=== PATIENT | male | born 1950 | race Caucasian/White ===

== ENCOUNTER 2017-08-04 19:13 | Inpatient (IN) | payer SELFPAY ==
[~2017-08-04] VITALS: Ht 180.3 cm; Wt 86.2 kg
--- NOTE | 2017-08-04 19:46 | NUR ---
IV LINE STARTED BLOOD DRAWN AND SENT TO LAB.
[2017-08-04 19:50] LABS: BASOPHILS # (AUTO) 0.1 /CMM (0.0-0.2); BASOPHILS % (AUTO) 0.5 % (0.0-2.0); EOSINOPHILS # (AUTO) 0.2 /CMM (0.0-0.7); EOSINOPHILS % (AUTO) 1.1 % (0.0-6.0); HEMATOCRIT 49 % (39-51); HEMOGLOBIN 16.9 g/dL (13.5-17.5); LYMPHOCYTES # (AUTO) 2.8 /CMM (0.8-4.8); MEAN CORPUSCULAR HEMOGLOBIN 32 PG (26.0-33.0); MEAN CORPUSCULAR HGB CONC 34 g/dl (31.0-36.0); MEAN CORPUSCULAR VOLUME 92 fL (80-96); MONOCYTES # (AUTO) 0.6 /CMM (0.1-1.30); MONOCYTES % (AUTO) 3.8 % (2.0-12.0); NEUTROPHILS # (AUTO) 12.9 /CMM (1.8-8.9); NEUTROPHILS % (AUTO) 77.6 % (43.0-81.0); PLATELET COUNT (AUTO) 136 /CMM (150-450); RDW COEFFICIENT OF VARIATION 12.6 (11.5-15.0); RED BLOOD CELL COUNT(AUTO) 5.32 MIL/uL (4.5-6.0); WHITE BLOOD COUNT (AUTO) 16.6 K/uL (4.3-11.0)
[2017-08-04 20:04] LABS: CALCIUM, SERUM 8.8 mg/dL (8.5-10.1); CARBON DIOXIDE 28 mmol/L (21-32); CHLORIDE 106 mmol/L (98-107); CREATININE 1.4 mg/dL (0.6-1.3); GLUCOSE 167 mg/dL (74-106); POTASSIUM 4.5 mmol/L (3.5-5.1); SODIUM SERUM 141 mmol/L (136-145); UREA NITROGEN, BLOOD 16 mg/dL (7-18)
[2017-08-04 20:08] LABS: INR 1.02 (0.85-1.15)
[2017-08-04 20:09] LABS: ALANINE AMINOTRANSFERASE 23 U/L (12-78); ALBUMIN 3.4 g/dL (3.4-5.0); ALKALINE PHOSPHATASE 68 U/L (46-116); ASPARTATE AMINOTRANSFERASE 18 U/L (15-37); BILIRUBIN,DIRECT 0.2 mg/dL (0.0-0.2); BILIRUBIN,TOTAL 0.6 mg/dL (0.2-1.0); TOTAL PROTEIN, SERUM 6.4 g/dL (6.4-8.2)
[2017-08-04 20:12] LABS: TROPONIN I < 0.017 ng/mL (0.00-0.056)
--- NOTE | 2017-08-04 20:19 | NUR ---
PT TO RADIOLOGY FOR HEAD CT SCAN VIA [facility].
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
[2017-08-04] MEDS ORDERED: ONDANSETRON 4 MG TAB.RAPDIS ONE (20:33)
--- NOTE | 2017-08-04 20:52 | NUR ---
PAGED EPIC FOR PANEL
[2017-08-04] MEDS ORDERED: ONDANSETRON 4 MG TAB.RAPDIS SL ONE (21:00)
[2017-08-04] MEDS ORDERED: IV NS 0.9% 1,000 ML IV PRN (21:02)
--- NOTE | 2017-08-04 21:14 | NUR ---
REPORT GIVEN TO CYNTHIA DENNISON. PT AWAITING TRANSFER TO FLOOR.
--- NOTE | 2017-08-04 21:24 | NUR ---
DR GARCIA MADE AWRE OF LOW B/P. VERBAL ORDER FOR 1L NS BOLUS. CARRIED OUT. INFUSING TO FLOOR. ENDORSED TO RECIEVING NURSE.
[2017-08-04] MEDS ORDERED: MAGNESIUM HYDROXIDE 30 ML UDC PO PRN (21:30)
[2017-08-04] MEDS ORDERED: HYDROCODONE/APAP 5/325MG 1 EACH TABLET PO PRN (21:30)
[2017-08-04] MEDS ORDERED: ASPIRIN 81 MG TAB.CHEW PO ONE (21:30)
[2017-08-04] MEDS ORDERED: MAG HYDROX/AL HYDROX/SIMETH 30 ML UDC PO PRN (21:30)
[2017-08-04] MEDS ORDERED: ONDANSETRON HCL/PF 4 MG/2 ML VIAL IVP PRN (21:30)
[2017-08-04] MEDS ORDERED: ZOLPIDEM TARTRATE 5 MG TABLET PO PRN (21:30)
[2017-08-04] MEDS ORDERED: ACETAMINOPHEN 325 MG TABLET PO PRN (21:30)
[2017-08-04] MEDS ORDERED: Z GUARD REMEDY 2 OZ OINT TP PRN (21:30)
[2017-08-04 22:00] VITALS: BP 101/54
[2017-08-04] MEDS ORDERED: ASPIRIN 325 MG TABLET PO ONE (22:00)
[2017-08-04] MEDS: ENOXAPARIN SODIUM 40 MG/0.4 ML DISP.SYRIN SQ SCH (22:51)
[2017-08-05] VITALS (16 sets, daily range): BP systolic 87–117; BP diastolic 51–71
[2017-08-05 06:10] LABS: BASOPHILS % (AUTO) 0.4 % (0.0-2.0); CALCIUM, SERUM 7.8 mg/dL (8.5-10.1); CREATININE 1.1 mg/dL (0.6-1.3); EOSINOPHILS # (AUTO) 0.2 /CMM (0.0-0.7); EOSINOPHILS % (AUTO) 1.3 % (0.0-6.0); HEMATOCRIT 39 % (39-51); HEMOGLOBIN 13.4 g/dL (13.5-17.5); LYMPHOCYTES # (AUTO) 3.3 /CMM (0.8-4.8); LYMPHOCYTES % (AUTO) 26.7 % (20.0-44.0); MAGNESIUM 1.9 mg/dL (1.8-2.4); MEAN CORPUSCULAR HEMOGLOBIN 32 PG (26.0-33.0); MEAN CORPUSCULAR HGB CONC 34 g/dl (31.0-36.0); MEAN CORPUSCULAR VOLUME 94 fL (80-96); MONOCYTES # (AUTO) 0.6 /CMM (0.1-1.30); MONOCYTES % (AUTO) 5.1 % (2.0-12.0); NEUTROPHILS # (AUTO) 8.2 /CMM (1.8-8.9); NEUTROPHILS % (AUTO) 66.5 % (43.0-81.0); PHOSPHORUS 3.7 mg/dL (2.5-4.9); PLATELET COUNT (AUTO) 118 /CMM (150-450); POTASSIUM 4.3 mmol/L (3.5-5.1); RDW COEFFICIENT OF VARIATION 13.3 (11.5-15.0); RED BLOOD CELL COUNT(AUTO) 4.19 MIL/uL (4.5-6.0); WHITE BLOOD COUNT (AUTO) 12.3 K/uL (4.3-11.0)
[2017-08-05] MEDS ORDERED: IV NS 0.9% 1,000 ML IV ONE (07:49)
--- NOTE | 2017-08-05 08:16 | NUR ---
RN OPENING NOTES PT AWAKE AND RESTING IN BED. NO COMPLAINTS OF PAIN, SOB OR DISTRESS OVERNIGHT. PT IS TELE MONITORED AT NORMAL SINUS RHYTHM TRISTIAN. PT HAS A RIGHT AC IV #18 RUNNING NS @75ML/HR. SAFETY PRECAUTIONS IN PLACE. BED IN LOW, LOCKED POSITION, X2 SIDE RAILS UP, CALL LIGHT WITHIN REACH. WILL ENDORSE TO DAY SHIFT NURSE FOR CONTINUITY OF CARE.
[2017-08-05] MEDS: PANTOPRAZOLE 40 MG TABLET.DR PO SCH (09:17)
[2017-08-05] MEDS ORDERED: IV NS 0.9% 1,000 ML BAG IV ONE (16:30)
--- NOTE | 2017-08-05 18:00 | NUR ---
ortho vs x2.iv fluids given,bp still continues to run low.
--- NOTE | 2017-08-05 19:19 | NUR ---
rn initial notes: received report from corey gibson, pt in bed, awake, a/o x3 on ra respiration even and unlabored, denies any pain or discomfort at this time. pt has right ac iv access patent and flushing well, infusing with ns at 150ml/hr, as pt blood pressure is low during the day, hospitalist aware. urinal within reach. safety precautions for fall initiated call light in reach, will cotnineu to monitor
--- NOTE | 2017-08-05 19:20 | NUR ---
call from [facility]: received call from PRODUCT PICKER marisa, stated upon completion of pt's ivf, check patient's orthostatics, input in the computer, and if bp stable , hospitalist will dc the pt tonight.
--- NOTE | 2017-08-05 20:30 | NUR ---
ORTHOSTATIC BP: ORTHOSTATIC BP TAKEN AND RESULTS FOLLOWS: HR SUPINE: 104/66 HR 60 RR 20 T 98.2 SPO2 96% ON RA SITTIN/58 HR 58 RR 18 T 98.2 SPO2 96% ON RA STANDIN/61 HR 71 RR 20 T 98.2 SPO2 96% ON RA PT DENIES ANY PAIN OR DISCOMFORT, DENIES ANY DIZZINESS OR LIGHT HEADEDNESS DURING BP TAKING. INFORM PT THAT HE MIGHT POSSIBLY BE GOING HOME IF HIS BP IS STABLE, PER PT HE'S NOT COMFORTABLE GOING HOME TONIGHT AND WOULD RATHER STAY TONIGHT AND GO HOME IN AM. HER STATED HE DOESN'T FEEL LIKE HIS BP IS GOOD, SO HE WANTS TO STAY TONIGHT. WILL CONTINUE MONITORING PT.
[2017-08-05] MEDS: ENOXAPARIN SODIUM 40 MG/0.4 ML DISP.SYRIN SQ SCH (21:55)
[2017-08-06] VITALS (7 sets, daily range): BP systolic 92–113; BP diastolic 52–74
--- NOTE | 2017-08-06 06:39 | NUR ---
RN CLOSING NOTES: PT IN BED, AWAKE, REMAINS ON RA, DENIES ANY PAIN OR DISCOMFORT AT THIS TIME, IV ACCESS REMAINS PATENT AND FLUSHING WELL, ON HL. POSSIBLE DC TODAY IF VS WNL. EXIT CARE COMPLETED. SAFETY PRECAUTIONS FOR FALL REMAINS ENGAGE, CALL LIGHT IN REACH, WILL ENDORSE TO DAY RN FOR CARLEEN.
--- NOTE | 2017-08-06 07:45 | NUR ---
RN NOTES. RECEIVED PATIENT IN BED , SLEEPING BUT EASILY [place], RESPIRATION EVEN AND UNLABORED, NO COMPLAINTS OF PAIN OR DISCOMFORT AT THIS TIME, IV RIGHT AC 18 GAUGE HEPLOCK INTACT AND PATENT , NO REDNESS OR INFILTRATION NOTED, SAFETY MEASURES IN PLACE , CALL LIGHT KEPT WITHIN REACH. KEPT CLEAN, DRY AND COMFORTABLE, WILL CONTINUE TO MONITOR.
[2017-08-06 07:52] LABS: BASOPHILS # (AUTO) 0.1 /CMM (0.0-0.2); BASOPHILS % (AUTO) 0.8 % (0.0-2.0); EOSINOPHILS # (AUTO) 0.4 /CMM (0.0-0.7); EOSINOPHILS % (AUTO) 4.5 % (0.0-6.0); HEMATOCRIT 40 % (39-51); LYMPHOCYTES # (AUTO) 3.6 /CMM (0.8-4.8); LYMPHOCYTES % (AUTO) 41.4 % (20.0-44.0); MEAN CORPUSCULAR HEMOGLOBIN 33 PG (26.0-33.0); MEAN CORPUSCULAR HGB CONC 35 g/dl (31.0-36.0); MEAN CORPUSCULAR VOLUME 94 fL (80-96); MONOCYTES # (AUTO) 0.5 /CMM (0.1-1.30); MONOCYTES % (AUTO) 5.7 % (2.0-12.0); NEUTROPHILS # (AUTO) 4.1 /CMM (1.8-8.9); NEUTROPHILS % (AUTO) 47.6 % (43.0-81.0); PLATELET COUNT (AUTO) 114 /CMM (150-450); RDW COEFFICIENT OF VARIATION 13.6 (11.5-15.0); WHITE BLOOD COUNT (AUTO) 8.7 K/uL (4.3-11.0)
[2017-08-06 08:08] LABS: CALCIUM, SERUM 7.9 mg/dL (8.5-10.1); POTASSIUM 4.3 mmol/L (3.5-5.1)
--- NOTE | 2017-08-06 08:19 | NUR ---
JESI NOTES/ ORTHOSTATIC BP LYING 113/64 HR 54 SITTING 105/74 59 STANDING 98/66 61 Addendum: 08/06/17 at 0820 by VERO LEACH RN Amended: Links added.
[2017-08-06] MEDS: PANTOPRAZOLE 40 MG TABLET.DR PO SCH (09:12)
[2017-08-06] MEDS ORDERED: IV NS 0.9% 1,000 ML IV PRN (09:30)
--- NOTE | 2017-08-06 16:00 | NUR ---
RN NOTES PATIENT WITH DISCHARGE ORDERS, MADE AWARE, WILL ASSIST WITH DISCHARGE PROCESS
--- NOTE | 2017-08-06 18:20 | NUR ---
RN NOTES. PATIENT AWAKE ALERT VERBALLY RESPONSIVE, ABLE TO MAKE NEEDS KNOWN. RESPIRATION EVEN AND UNLABORED, NO COMPLAINTS OF PAIN OR DISCOMFORT AT THIS TIME,IN NO ACUTE DISTRESS. IV RIGHT AC AND ID BAND REMOVED WITH NO ASE NOTED. PATIENT WITH DISCHARGE ORDERS, ALL DISCHARGE INSTRUCTIONS REVIEWED WITH PATIENT WITH VERBAL UNDERSTANDING NOTED. ALL BELONGINGS ACCOUNTED FOR.ASSISTED TO LOBBY, DISCHARGED IN STABLE CONDITION
== END 2017-08-06 18:20 | disposition home or self-care (01) | DRG 684 ==
LOC: ER 19:21 → TELE 21:05 → MED 08-05 10:47
PROVIDERS: ADMIT Internal Medicine; ATTEND Internal Medicine
DX: N17.9 Acute kidney failure, unspecified (principal); S09.90XA Unspecified injury of head, initial encounter; D72.829 Elevated white blood cell count, unspecified; E86.0 Dehydration; E78.5 Hyperlipidemia, unspecified; R07.9 Chest pain, unspecified; R00.1 Bradycardia, unspecified; R10.13 Epigastric pain; R55 Syncope and collapse; M53.82 Other specified dorsopathies, cervical region; X58.XXXA Exposure to other specified factors, initial encounter; Y93.9 Activity, unspecified; Y92.009 Unspecified place in unspecified non-institutional (private) residence as the place of occurrence of the external cause
CPT/HCPCS: 36415; 70450-TC; 71045-TC; 80048-TC; 80076-TC; 83735-TC; 84100-TC; 84484-TC; 85025-TC; 85730-TC; 87081-TC; 93307-TC; 93880-TC; A4606; J1650; J7030; Q0162; Z7610

== ENCOUNTER → 2018-12-19 | Emergency (ER) | payer MEDICAID, OTHER ==
[~2018-12-19] VITALS: Ht 180.3 cm; Wt 87.7 kg
[2018-12-20 00:03] VITALS: BP 110/66
--- NOTE | 2018-12-20 00:14 | NUR ---
PT PLACED IN BED
== END | disposition home or self-care (01) ==
LOC: ER 23:59
DX: S50.862A Insect bite (nonvenomous) of left forearm, initial encounter (principal); S80.261A Insect bite (nonvenomous), right knee, initial encounter; Z60.2 Problems related to living alone; W57.XXXA Bitten or stung by nonvenomous insect and other nonvenomous arthropods, initial encounter; Y93.89 Activity, other specified; Y92.89 Other specified places as the place of occurrence of the external cause; Y99.8 Other external cause status

== ENCOUNTER 2019-05-22 12:10 | Inpatient (IN) | payer OTHER ==
[~2019-05-22] VITALS: Ht 180.3 cm; Wt 86.2 kg
--- NOTE | 2019-05-22 12:20 | NUR ---
LEFT SIDED CP X1 WEEK. PATIENT A/OX4, BREATHING EVEN AND UNLABORED, NO SOB NOTED. ATTACHED TOT HE CATIA DESIGNER.
[2019-05-22 12:38] LABS: BASOPHILS # (AUTO) 0.3 /CMM (0.0-0.2); BASOPHILS % (AUTO) 3.5 % (0.0-2.0); EOSINOPHILS % (AUTO) 2.2 % (0.0-6.0); HEMATOCRIT 48 % (39-51); HEMOGLOBIN 16.3 g/dL (13.5-17.5); LYMPHOCYTES # (AUTO) 2.4 /CMM (0.8-4.8); LYMPHOCYTES % (AUTO) 26.1 % (20.0-44.0); MEAN CORPUSCULAR HGB CONC 34 g/dl (31.0-36.0); MEAN CORPUSCULAR VOLUME 94 fL (80-96); MONOCYTES # (AUTO) 0.7 /CMM (0.1-1.30); NEUTROPHILS # (AUTO) 5.5 /CMM (1.8-8.9); NEUTROPHILS % (AUTO) 60.2 % (43.0-81.0); PLATELET COUNT (AUTO) 214 /CMM (150-450); RED BLOOD CELL COUNT(AUTO) 5.14 MIL/uL (4.5-6.0); WHITE BLOOD COUNT (AUTO) 9.2 K/uL (4.3-11.0)
[2019-05-22 13:07] LABS: CALCIUM, SERUM 8.9 mg/dL (8.5-10.1); CARBON DIOXIDE 26 mmol/L (21-32); CHLORIDE 105 mmol/L (98-107); CREATININE 1.2 mg/dL (0.6-1.3); GLUCOSE 122 mg/dL (74-106); POTASSIUM 3.8 mmol/L (3.5-5.1); SODIUM SERUM 141 mmol/L (136-145); UREA NITROGEN, BLOOD 16 mg/dL (7-18)
--- NOTE | 2019-05-22 13:20 | NUR ---
SUBMITTED MOVE SHEET TO ADMITTING AND CALLED FOR TELE BED
[2019-05-22 13:23] LABS: ALANINE AMINOTRANSFERASE 56 U/L (12-78); ALBUMIN 3.7 g/dL (3.4-5.0); ALKALINE PHOSPHATASE 88 U/L (46-116); ASPARTATE AMINOTRANSFERASE 23 U/L (15-37); B-TYPE NATRIURETIC PEPTIDE 37 PG/ML (0-125); BILIRUBIN,DIRECT 0.1 mg/dL (0.0-0.2); BILIRUBIN,TOTAL 0.4 mg/dL (0.2-1.0); TOTAL PROTEIN, SERUM 7.8 g/dL (6.4-8.2)
[2019-05-22] MEDS ORDERED: MORPHINE SULFATE INJ 2 MG/ML DISP.SYRIN IV PRN (14:30)
[2019-05-22] MEDS ORDERED: ACETAMINOPHEN 325 MG TABLET PO PRN (14:30)
[2019-05-22] MEDS ORDERED: MAGNESIUM HYDROXIDE 30 ML UDC PO PRN (14:30)
[2019-05-22] MEDS ORDERED: HYDROCODONE/APAP 5/325MG 1 EACH TABLET PO PRN (14:30)
[2019-05-22] MEDS ORDERED: ONDANSETRON HCL/PF 4 MG/2 ML VIAL IVP PRN (14:30)
[2019-05-22] MEDS ORDERED: MAG HYDROX/AL HYDROX/SIMETH 30 ML UDC PO PRN (14:30)
[2019-05-22] MEDS ORDERED: Z GUARD REMEDY 2 OZ OINT TP PRN (14:30)
[2019-05-22] MEDS ORDERED: ZOLPIDEM TARTRATE 5 MG TABLET PO PRN (14:30)
--- NOTE | 2019-05-22 14:44 | NUR ---
REPORT GIVEN TO RAFIQ DNENISON.
--- NOTE | 2019-05-22 15:10 | NUR ---
PATIENT TRANSFERRED TO ROOM 323-2 VIA ACLS PROTOCOL. IN STABLE CONDITION. NO DISTRESS NOTED.
[2019-05-22] MEDS: ASPIRIN 325 MG TABLET PO SCH (15:26)
[2019-05-22 16:00] VITALS: BP 114/63
[2019-05-22] MEDS: IBUPROFEN 400 MG TABLET PO SCH ×2 (16:37→21:46)
[2019-05-22] MEDS: NITROGLYCERIN 30 GM TUBE TP SCH ×2 (18:08→23:24)
[2019-05-22] MEDS: IV NS 0.9% 1,000 ML IV SCH (18:39)
--- NOTE | 2019-05-22 18:57 | NUR ---
rn closing notes patient remains on room air, no sob noted, a/o x4. cardiac diet. R ac 19 with 100 ml per hour. Nitro ointment placed at 1800, to be replaced with the next one. bed at the lowest setting, call light within reach, side rails up x2. will give report to noc rn for candido bedside.
[2019-05-22 20:00] VITALS: BP 112/76
--- NOTE | 2019-05-22 23:37 | NUR ---
ambien prn ambien 5mg administered as ordered per request by patient to help with sleeping.
[2019-05-23] VITALS: BP 108/65
[2019-05-23 04:17] VITALS: BP 116/65
[2019-05-23] MEDS: IBUPROFEN 400 MG TABLET PO SCH ×2 (05:39→09:52)
[2019-05-23] MEDS: NITROGLYCERIN 30 GM TUBE TP SCH ×2 (05:40→12:19)
[2019-05-23] MEDS: IV NS 0.9% 1,000 ML IV SCH (05:43)
[2019-05-23 07:10] LABS: CALCIUM, SERUM 8.4 mg/dL (8.5-10.1); MAGNESIUM 1.9 mg/dL (1.8-2.4); PHOSPHORUS 3.1 mg/dL (2.5-4.9); POTASSIUM 4.3 mmol/L (3.5-5.1)
[2019-05-23 07:23] LABS: BASOPHILS # (AUTO) 0.1 /CMM (0.0-0.2); BASOPHILS % (AUTO) 0.8 % (0.0-2.0); EOSINOPHILS % (AUTO) 3.9 % (0.0-6.0); HEMATOCRIT 42 % (39-51); HEMOGLOBIN 14.3 g/dL (13.5-17.5); LYMPHOCYTES # (AUTO) 3.1 /CMM (0.8-4.8); LYMPHOCYTES % (AUTO) 37.8 % (20.0-44.0); MEAN CORPUSCULAR HGB CONC 34 g/dl (31.0-36.0); MEAN CORPUSCULAR VOLUME 93 fL (80-96); MONOCYTES # (AUTO) 0.8 /CMM (0.1-1.30); MONOCYTES % (AUTO) 10.1 % (2.0-12.0); NEUTROPHILS # (AUTO) 3.9 /CMM (1.8-8.9); NEUTROPHILS % (AUTO) 47.4 % (43.0-81.0); RED BLOOD CELL COUNT(AUTO) 4.51 MIL/uL (4.5-6.0); WHITE BLOOD COUNT (AUTO) 8.2 K/uL (4.3-11.0)
[2019-05-23] MEDS ORDERED: IV NS 0.9% 1,000 ML IV PRN (07:31)
[2019-05-23 08:00] VITALS: BP 104/63
--- NOTE | 2019-05-23 08:01 | NUR ---
PROFESSOR OF THEATER OPENING NOTES RECEIVED REPORT FROM KVNG DENNISON. PT A/O X4, RESPONSIVE TO ALL STIMULI. RESPIRATION NOT IN ACUTE RESPIRATORY DISTRESS. DENIES PAIN / CHEST PAIN. ABD SOFT AND NON DISTENDED WITH ACTIVE BOWEL SOUNDS WITH BRP. SKIN WARM TO TOUCH, INTACT AN DRY, NO EDEMA NOTED ON BLE. RIGHT AC #18 PATENT IN FLUSHING WITH NO S/SX ON INFILTRATION RUNNING NS 100 ML/HR. TELE MONITOR SHOWS SINUS BRADYCARDIA 55 WITH T WAVE. ALL CONCERNS ATTENDED AT THIS TIME. CALL LIGHT WITHIN REACH. WILL CONTINUE TO EVALUATE CARE
[2019-05-23] MEDS: ASPIRIN 325 MG TABLET PO SCH (08:17)
--- NOTE | 2019-05-23 08:22 | NUR ---
CURBING STONECUTTER NOTES PT SEEN BY DR. ARIAS. CONTINUE NSAIDS FOR PAIN, EXPLAINED TO PATIENT ABOUT PLEURITIC CHEST PAIN. WAITING FOR CARDIO CONSULT, DR. CHNADRA PLAN OF CARE. PT VERBALIZED UNDERSTANDING.
[2019-05-23 09:33] LABS: PLATELET COUNT (AUTO) 184 /CMM (150-450)
[2019-05-23 12:19] VITALS: BP 109/73
[2019-05-23] MEDS ORDERED: PNEUMOCOCCAL 23-VAL P-SAC VAC 0.5 ML VIAL SQ ONE (13:00)
[2019-05-23] MEDS ORDERED: INFLUENZA VACCINE 2019-20 0.5 ML DISP.SYRIN IM ONE (13:00)
--- NOTE | 2019-05-23 13:29 | NUR ---
M/S CERTIFIED ANESTHESIOLOGIST ASSISTANT NOTES PT DISCHARGED WITH MEDICALLY STABLE CONDITION. PT REMAINED A/O X 4, RESPONSIVE TO ALL STIMULI. RESPIRATION EVEN AND UNLABORED WITH NO ACUTE RESPIRATORY DISTRESS, ABLE TO AMBULATE WITH NO C/O SOB/EXERTION ABDOMEN SOFT AND NON DISTENDED WITH ACTIVE BOWEL SOUNDS, BM TODAY. DENIES PAIN AND DISCOMFORT. SKIN REMAINED INTACT AND DRY. RIGHT AC IV TAKEN OFF. ID BAND REMOVED. EXIT CARE GIVEN WITH INSTRUCTIONS PROVIDED, PT VERBALLY UNDERSTOOD THE FF UP WITH PCP AND MD RECOMMENDATIONS. PT STATED NECKLACE TAKEN BY ALREADY D/T INVENTORY LISTED. FLU VACCINE AND PNEUMO VACCINE GIVEN TO DELTOID WITH NO ADVERSE REACTION NOTED. RE-CHECKED BP WITH 123/85 MM HF, HR 72, NO C/O LIGHTHEADEDNESS/FATIGUE/CHEST PAIN. ALL CONCERNS AND CARE ATTENDED. PT LEFT ACCOMPANIED BY DYAN CARRERO, PT DRIVEN A PRIVATE CAR
== END 2019-05-23 13:35 | disposition home or self-care (01) | DRG 113 ==
LOC: ER 12:10 → TELE 14:09 → MED 05-23 13:31
PROVIDERS: ADMIT Internal Medicine; ATTEND Internal Medicine
DX: J06.9 Acute upper respiratory infection, unspecified (principal); E78.5 Hyperlipidemia, unspecified; E86.0 Dehydration; I70.0 Atherosclerosis of aorta; R55 Syncope and collapse; R00.1 Bradycardia, unspecified; H02.60 Xanthelasma of unspecified eye, unspecified eyelid
CPT/HCPCS: 36415; 71045-TC; 80048-TC; 80061-TC; 80076-TC; 83735-TC; 83880; 84100-TC; 84484-TC; 85025-TC; 87081-TC; 90732; 93307-TC; G0378; J7030; Q2036

== ENCOUNTER 2019-07-12 11:02 | Emergency (ER) | payer OTHER ==
[~2019-07-12] VITALS: Ht 180.3 cm; Wt 93.9 kg
--- NOTE | 2019-07-12 11:16 | NUR ---
bibwife, c/o right ear pain and loss of hearing x 2 weeks, 07/26 ps. Patient a/ox4, breathing even and unlabored, no sob noted.
--- NOTE | 2019-07-12 11:18 | NUR ---
DEGRASSE GAS CONTROLLER AT BEDSIDE FOR EVAL.
[2019-07-12] MEDS ORDERED: DOCUSATE SODIUM LIQ 100 MG/10 ML UDC ONE ×2 (11:19→11:47)
[2019-07-12] MEDS ORDERED: DOCUSATE SODIUM LIQ 100 MG/10 ML UDC NG ONE (11:30)
--- NOTE | 2019-07-12 12:22 | NUR ---
Ear irrigated, Patient discharged to home in stable condition. Written and verbal after care instructions given. Patient verbalizes understanding of instruction.
[2019-07-12 12:23] VITALS: BP 118/64
== END 2019-07-12 12:23 | disposition home or self-care (01) ==
LOC: ER 11:08
DX: H61.21 Impacted cerumen, right ear (principal); Z60.2 Problems related to living alone

== ENCOUNTER 2021-06-07 12:21 | Inpatient (IN) | payer MEDICARE, OTHER ==
[~2021-06-07] VITALS: Ht 180.3 cm; Wt 93.0 kg
--- NOTE | 2021-06-07 12:21 | NUR ---
PT BIB SELF C/O L SIDED CHEST/CHEST WALL PAIN SINCE YESTERDAY. WAS LIFTING WEIGHTS 3 DAYS AGO. PT IS AAOX4, NOT IN RESPIRATORY DISTRESS, HOOKED TO MAINSPRING STRIP GAUGER, KEPT RESTED AND COMFORTABLE. WILL CONTINUE TO MONITOR.
--- NOTE | 2021-06-07 12:28 | NUR ---
AT BEDSIDE FOR EVAL.
--- NOTE | 2021-06-07 12:40 | NUR ---
DRIVER ENGINEER AT BEDSIDE FOR XRAY.
--- NOTE | 2021-06-07 12:59 | NUR ---
ER PHLEB AT BEDSIDE FOR BLOOD DRAW.
--- NOTE | 2021-06-07 13:00 | NUR ---
MOVE SHEET SUBMITTED AND CALLED FOR TELE BED.
[2021-06-07 14:01] LABS: BASOPHILS # (AUTO) 0.1 K/uL (0.0-0.2); BASOPHILS % (AUTO) 0.5 % (0.0-2.0); EOSINOPHILS % (AUTO) 1.1 % (0.0-6.0); HEMATOCRIT 43 % (39-51); HEMOGLOBIN 14.5 g/dL (13.5-17.5); LYMPHOCYTES # (AUTO) 2.2 K/uL (0.8-4.8); LYMPHOCYTES % (AUTO) 16.4 % (20.0-44.0); MEAN CORPUSCULAR HGB CONC 34 g/dl (31.0-36.0); MEAN CORPUSCULAR VOLUME 95 fL (80-96); MONOCYTES # (AUTO) 0.6 K/uL (0.1-1.30); MONOCYTES % (AUTO) 4.4 % (2.0-12.0); NEUTROPHILS # (AUTO) 10.5 K/uL (1.8-8.9); NEUTROPHILS % (AUTO) 77.6 % (43.0-81.0); PLATELET COUNT (AUTO) 175 K/uL (150-450); RED BLOOD CELL COUNT(AUTO) 4.54 MIL/uL (4.5-6.0); WHITE BLOOD COUNT (AUTO) 13.5 K/uL (4.3-11.0)
[2021-06-07] MEDS ORDERED: ACET-2605 PO (14:16)
[2021-06-07 14:27] LABS: CALCIUM, SERUM 9.1 mg/dL (8.5-10.1); CARBON DIOXIDE 27 mmol/L (21-32); CHLORIDE 102 mmol/L (98-107); CREATININE 1.4 mg/dL (0.6-1.3); GLUCOSE 93 mg/dL (74-106); POTASSIUM 4.2 mmol/L (3.5-5.1); SODIUM SERUM 138 mmol/L (136-145); UREA NITROGEN, BLOOD 16 mg/dL (7-18)
--- NOTE | 2021-06-07 16:10 | NUR ---
ER PHLEB AT BEDSIDE FOR 2ND TROPONIN
--- NOTE | 2021-06-07 18:00 | NUR ---
COVID SPECIMEN OBTAINED AND SENT TO LAB.
--- NOTE | 2021-06-07 18:03 | NUR ---
[facility] CALLED COMPUTER EQUIPMENT INSTALLER PAGED.
[2021-06-07] MEDS ORDERED: Z GUARD REMEDY 4 OZ OINT TP PRN (19:00)
[2021-06-07] MEDS ORDERED: ACETAMINOPHEN 325 MG TABLET PO PRN (19:00)
[2021-06-07] MEDS ORDERED: ASPIRIN 325 MG TABLET PO ONE (19:00)
[2021-06-07] MEDS ORDERED: ZOLPIDEM TARTRATE 5 MG TABLET PO PRN (19:00)
[2021-06-07] MEDS ORDERED: MAG HYDROX/AL HYDROX/SIMETH 30 ML UDC PO PRN (19:00)
[2021-06-07] MEDS ORDERED: MAGNESIUM HYDROXIDE 30 ML UDC PO PRN (19:00)
[2021-06-08] MEDS ORDERED: ASPIRIN 325 MG TABLET ONE (01:51)
[2021-06-08 04:47] LABS: BASOPHILS # (AUTO) 0.1 K/uL (0.0-0.2); BASOPHILS % (AUTO) 0.7 % (0.0-2.0); EOSINOPHILS % (AUTO) 3.8 % (0.0-6.0); HEMATOCRIT 43 % (39-51); HEMOGLOBIN 14.6 g/dL (13.5-17.5); LYMPHOCYTES # (AUTO) 3.3 K/uL (0.8-4.8); MEAN CORPUSCULAR HGB CONC 34 g/dl (31.0-36.0); MEAN CORPUSCULAR VOLUME 96 fL (80-96); MONOCYTES # (AUTO) 0.7 K/uL (0.1-1.30); MONOCYTES % (AUTO) 7.1 % (2.0-12.0); NEUTROPHILS # (AUTO) 5.9 K/uL (1.8-8.9); NEUTROPHILS % (AUTO) 56.4 % (43.0-81.0); PLATELET COUNT (AUTO) 173 K/uL (150-450); RED BLOOD CELL COUNT(AUTO) 4.52 MIL/uL (4.5-6.0); WHITE BLOOD COUNT (AUTO) 10.4 K/uL (4.3-11.0)
--- NOTE | 2021-06-08 05:00 | NUR ---
PATIENT IN BED RESTING, VSS, AMBULATES WITH STEADY GAIT. PATIENT NOTED WITH NO ACUTE DISTRESS.
[2021-06-08 05:03] LABS: CALCIUM, SERUM 8.5 mg/dL (8.5-10.1); CREATININE 1.2 mg/dL (0.6-1.3); MAGNESIUM 2.2 mg/dL (1.8-2.4); PHOSPHORUS 3.4 mg/dL (2.5-4.9); POTASSIUM 4.1 mmol/L (3.5-5.1)
--- NOTE | 2021-06-08 06:38 | NUR ---
DR CHANDRA @ BEDSIDE
[2021-06-08] MEDS ORDERED: IOHEXOL-350 100 ML VIAL IV ONE (07:49)
[2021-06-08] MEDS ORDERED: IV NS 0.9% 250 ML IV ONE (07:49)
[2021-06-08] MEDS ORDERED: NITROGLYCERIN 0.4 MG/TAB BOTTLE SL ONE (08:00)
[2021-06-08] MEDS ORDERED: METOPROLOL TARTRATE INJ 5 MG/5 ML AMPUL IVP PRN (08:00)
[2021-06-08] MEDS ORDERED: METOPROLOL TARTRATE INJ 5 MG/5 ML AMPUL ONE (08:23)
--- NOTE | 2021-06-08 08:32 | NUR ---
CTA PROCEDURE DONE. WELL TOLERATED BY THE PT. V/S STABLE, KEPT RESTED AND COMFORTABLE. WILL CONTINUE TO MONITOR. REPORT GIVEN TO JESI SHAHID FOR CARLEEN.
[2021-06-08] MEDS ORDERED: ONDANSETRON HCL/PF 4 MG/2 ML VIAL ONE (08:35)
[2021-06-08] MEDS: ONDANSETRON HCL/PF 4 MG/2 ML VIAL IVP PRN ×3 (08:40→16:16)
--- NOTE | 2021-06-08 08:40 | NUR ---
FOOD TRAY PROVIDED
[2021-06-08 08:48] LABS: THYROID STIMULATING HORMONE 2.758 uIU/mL (0.358-3.74)
--- NOTE | 2021-06-08 09:17 | NUR ---
SPOKE TO DR FRANK, PT NPO
--- NOTE | 2021-06-08 10:36 | NUR ---
CONSENT FOR ANGIOPLASTY GIVEN BY PATIENT
[2021-06-08] MEDS ORDERED: FENTANYL PF 100MCG/2ML AMPUL ONE (11:04)
[2021-06-08] MEDS ORDERED: IV NS 0.9% 50 ML IV ONE (11:04)
[2021-06-08] MEDS ORDERED: IV NS 0.9% 1,000 ML ONE (11:04)
[2021-06-08] MEDS ORDERED: NITROGLYCERIN IN 5 % DEXTROSE 250 ML IV ONE (11:05)
[2021-06-08] MEDS ORDERED: MIDAZOLAM HCL 2 MG/2ML VIAL ONE (11:05)
[2021-06-08] MEDS ORDERED: LIDOCAINE HCL/MPF 1% 30 ML VIAL IJ ONE (11:05)
[2021-06-08] MEDS ORDERED: IODIXANOL 150 ML IV ONE (11:06)
[2021-06-08] MEDS ORDERED: HEPARIN SODIUM, PORCINE 5000 UNITS/1 ML VIAL ONE (11:49)
[2021-06-08] MEDS ORDERED: IODIXANOL 320MG/ML 50 ML IV ONE (11:51)
[2021-06-08] MEDS: METOPROLOL TARTRATE 50 MG TABLET PO SCH ×2 (12:00→17:29)
--- NOTE | 2021-06-08 12:00 | NUR ---
LOPRESSOR NOT GIVEN, PT TAKEN TO PROCEDURE.
[2021-06-08] MEDS ORDERED: TICAGRELOR 90 MG TABLET PO ONE (12:16)
--- NOTE | 2021-06-08 12:58 | NUR ---
REPORT GIVEN TO JESI MARTINEZ OF ICU FOR CARLEEN.
--- NOTE | 2021-06-08 13:10 | NUR ---
REPORT GIVEN TO JESI ROSAS FOR CARLEEN. WITH TR BAND ON THE R RADIAL. NO BLEEDING NOTED. V/S STABLE.
--- NOTE | 2021-06-08 14:01 | NUR ---
RN NOTES REMOVED 3ML OF AIR FROM TR BAND WITH NO ACTIVE BLEEDING NOTED. V/S : BP 11/69, P 52, R 18 AND T 97.5. WILL CONTINUE TO MONITOR.
--- NOTE | 2021-06-08 14:05 | NUR ---
MANAGER SALES AND MARKETING ADMITTING NOTES PT ADMITTED TO UNIT AT 1310 VIA [facility] S/P CTCA AND CARDIAC CATHETERIZATION TODAY ACCOMPANIED BY SILVIA MURGUIA RN. PT IS A/O X4. ABLE TO MAKE NEEDS KNOWN, NO C/O CHEST PAIN OR ANY DISCOMFORT AT THIS TIME. PT ORIENTED TO ROOM AND STAFF. V/S TAKEN, STABLE AND RECORDED. ON ROOM AIR, TOLERATING WELL, BREATHING EVEN AND UNLABORED. NO SKIN ISSUES NOTED. PT WITH SL'S ON LEFT HAND G#18 AND RAC G#18 BOTH INTACT AND PATENT. PT WITH TR BAND ON RIGHT WRIST WITH NO ACTIVE BLEEDING NOTED. PT PLACED ON EXTERNAL SUPERINTENDENT STEVEDORING WITH CURRENT READING OF NSR, HR ON THE 60'S, NO C/O CARDIAC DIRECTRESS VOICED AT THIS TIME. SAFETY MEASURES INITIATED: BED PLACED IN LOWEST LOCKED POSITION WITH SR UP X2. BEDSIDE TABLE AND CALL LIGHT PLACED W/IN EASY REACH OF P. WILL CONTINUE TO MONITOR PT.
--- NOTE | 2021-06-08 14:17 | NUR ---
RN NOTES REMOVED 3ML OF AIR FROM TR BAND WITH NO ACTIVE BLEEDING NOTED. V/S : BP 111/70, P 62, R 18 AND T 98F. WILL CONTINUE TO MONITOR.
--- NOTE | 2021-06-08 14:31 | NUR ---
RN NOTES REMOVED 3ML OF AIR FROM TR BAND WITH NO ACTIVE BLEEDING NOTED. V/S : BP 19/72, P 59, R 18 AND T 97.8. WILL CONTINUE TO MONITOR.
--- NOTE | 2021-06-08 14:47 | NUR ---
RN NOTES REMOVED 3ML OF AIR FROM TR BAND WITH NO ACTIVE BLEEDING NOTED. V/S : BP 119/76, P 60, R 18 AND T 97.7. WILL CONTINUE TO MONITOR.
--- NOTE | 2021-06-08 15:03 | NUR ---
RN NOTES REMOVED 3ML OF AIR FROM TR BAND WITH NO ACTIVE BLEEDING NOTED. V/S : BP 121/67, P 62, R 18 AND T 97.6. WILL CONTINUE TO MONITOR.
--- NOTE | 2021-06-08 15:18 | NUR ---
RN NOTES REMOVED 3ML OF AIR FROM TR BAND WITH NO ACTIVE BLEEDING NOTED. V/S : BP 121/74, P 62, R 18 AND T 97.6. WILL CONTINUE TO MONITOR.
[2021-06-08] MEDS ORDERED: CEFTRIAXONE 1 G in IV D5W 50 ML IV SCH (16:00)
[2021-06-08 16:14] VITALS: BP 112/70
--- NOTE | 2021-06-08 16:18 | NUR ---
RN NOTES PT C/O OF NAUSEA, PRN ZOFRAN 4MG IVP ADMINISTERED AT 1615. WILL CONTINUE TO MONITOR AND REASSESS PT.
--- NOTE | 2021-06-08 18:53 | NUR ---
BILINGUAL TEACHER AIDE CLOSING NOTES PT IN BED RESTING AT MODERATE HIGH BACKREST POSITION. A/O X4. ABLE TO MAKE NEEDS KNOWN. ON ROOM AIR, TOLERATING WELL, BREATHING EVEN AND UNLABORED. IV SALINE LOCKS ON LEFT HAND G#18 AND RAC G#18 BOTH INTACT AND PATENT. TR BAND ON RIGHT WRIST REMOVED EARLIER WITH O ACTIVE BLEEDING NOTED. ON EXTERNAL SUPERVISOR KOSHER DIETARY SERVICE WITH CURRENT READING OF NSR, HR ON THE 60'S, NO C/O CARDIAC DIRECTRESS VOICED. ALL NEEDS AND CARE ATTENDED WELL. SAFETY MEASURES MAINTAINED: BED IN LOWEST LOCKED POSITION WITH SR UP X2. BEDSIDE TABLE AND CALL LIGHT PLACED W/IN EASY REACH OF PT. WILL ENDORSE CARLEEN TO PRODUCTION ILLUSTRATOR NURSE.
[2021-06-08 20:00] VITALS: BP 111/74
--- NOTE | 2021-06-08 20:14 | NUR ---
TELERN FULLY AWAKE, STATED WAS IN PAIN FEW HOURS AGO, OFFERED TYLENOL, STATED PAIN AT THIS MOMENT TOLERABLE. REFUSED TO TAKE TYLENOL OF NOW, WILL CALL IF PAIN PERSIST. KEPT COMFORTABLE. REMINDED TO CALL STAFF FOR FURTHER DISCOMFORTS.
--- NOTE | 2021-06-08 23:00 | NUR ---
TELERN ASLEEP APPEARS COMFORTABLE. REMAINS SR ON THE MONITOR. STABLE FOR NOW,
[2021-06-09] VITALS: BP 108/60
[2021-06-09] MEDS: METOPROLOL TARTRATE 50 MG TABLET PO SCH ×2 (05:15)
--- NOTE | 2021-06-09 05:15 | NUR ---
RN NOTE I WITHHELD PATIENT'S METOPROLOL THIS MORNING. PATIENT HAD INITIALLY REFUSED 0400 VS. WOOD AND WOOD PRODUCTS LABOURER NOTIFIED ME AND I WENT TO THE PATIENT'S ROOM TO TAKE BP BY HAND. I EXPLAINED TO THE PATIENT THE RATIONALE BEHIND THE MEDS. HIS BP IS CURRENTLY 108/64, HR 55. TELE DESK REPORTS HR HAS BEEN STAYING AT 50-55 BPM. I ALSO WITHHELD LAST NIGHT'S 0000 DOSE HIS BP WAS 108/60 W/ HR OF 57. PREVIOUSLY, AT 1999 IT WAS 111/74 W/ HR OF 58. WITHOUT TAKING BP MEDS THIS PATIENT'S BP AND HR HAVE BEEN TRENDING DOWN. THIS PATIENT IS RECENTLY POST CATH INSERTION, AND I DON'T WANT THE PATIENT TO CRASH. PATIENT IS CURRENTLY STABLE, AND UNDERSTANDS ALL PATIENT TEACHING I GAVE. NURSE VISUAL SUPERVISOR NOTIFIED.
--- NOTE | 2021-06-09 07:03 | NUR ---
MANAGER UNIT CLOSING NOTE PATIENT ASLEEP IN BED. A/OX4. NO S/S OF DISTRESS, BREATHING SYMMETRICAL, ROOM AIR. CHIEF DESIGN DRAFTER REPORTS SR 64. SAFETY MEASURES IN PLACE: BED AT LOWEST POSITION, RAILS UP X2, CALL LEYVA WITHIN REACH. WILL ENDORSE TO FOLLOWING SHIFT FOR CARLEEN.
--- NOTE | 2021-06-09 07:45 | NUR ---
WIRE TINNER OPENING NOTES RECEIVED PATIENT IN BED, AWAKE, A/O X4. PATIENT ON ROOM AIR, BREATHING EVEN AND UNLABORED, NO SOB NOTED. NO COMPLAINS OF PAIN. TELE MONITOR WITH A CURRENT READING OF SR 68. IV ACCESS AT L HAND G 3 18 AND RAC G # 18 SL PRESENT AND INTACT. SAFETY PRECAUTIONS IN PLACE; BED IN LOW POSITION AND LOCKED, RAILS UP X2, CALL LIGHT WITHIN REACH. WILL CONTINUE TO MONITOR PATIENT.
[2021-06-09 08:00] VITALS: BP 115/71
[2021-06-09] MEDS ORDERED: ATORVASTATIN 40 MG TABLET PO SCH (09:00)
[2021-06-09] MEDS ORDERED: ASPIRIN 81 MG TAB.CHEW PO SCH (09:00)
[2021-06-09] MEDS ORDERED: TICAGRELOR 90 MG TABLET PO SCH (09:00)
[2021-06-09] MEDS ORDERED: ATOR40TA PO (13:12)
[2021-06-09] MEDS ORDERED: ASPI-1169 PO (13:12)
[2021-06-09] MEDS ORDERED: TICA90TA PO (13:12)
--- NOTE | 2021-06-09 14:01 | NUR ---
MS WEBBING SEAMER POUND NET NOTES PATIENT DISCHARGED HOME IN MEDICALLY STABLE CONDITION. PATIENT A/O X4 ABLE TO MAKE NEEDS KNOWN. ALL DISCHARGE PAPERWORK READY AND PHYSICIAN DISCHARGE INSTRUCTIONS PROVIDED TO PATIENT; PATIENT VERBALIZED UNDERSTANDING ND SIGNED PAPERWORK. BELONGINGS ACCOUNTED FOR AND FORMS SIGNED WELL. IV ACCESS REMOVED PRIOR TO PATIENT LEAVING THE UNIT. PATIENT LEFT THE UNIT AMBULATORY ACCOMPANIED BY SON AT 1355. LEFT THE HOSPITAL IN A PRIVATE CAR.
== END 2021-06-09 14:00 | disposition home or self-care (01) | DRG 246 ==
LOC: ER 12:32 → TRANSITION 06-08 00:46 → TELE 06-08 13:23 → MED 06-09 09:36
PROVIDERS: ADMIT Nurse Practitioner Acute Care; ATTEND Nurse Practitioner Acute Care
PROC: 4A023N7 Measurement of Cardiac Sampling and Pressure, Left Heart, Percutaneous Approach (ICD-10-PCS; principal; 2021-06-08)
PROC: 027034Z Dilation of Coronary Artery, One Artery with Drug-eluting Intraluminal Device, Percutaneous Approach (ICD-10-PCS; 2021-06-08)
PROC: B211YZZ Fluoroscopy of Multiple Coronary Arteries using Other Contrast (ICD-10-PCS; 2021-06-08)
DX: I25.10 Atherosclerotic heart disease of native coronary artery without angina pectoris (principal); N17.0 Acute kidney failure with tubular necrosis; I21.4 Non-ST elevation (NSTEMI) myocardial infarction; E78.5 Hyperlipidemia, unspecified; D72.829 Elevated white blood cell count, unspecified; I70.0 Atherosclerosis of aorta; Z20.822 Contact with and (suspected) exposure to COVID-19
CPT/HCPCS: 36415; 71045-TC; 75574; 80048-TC; 80061-TC; 82550-TC; 83735-TC; 84100-TC; 84439-TC; 84443-TC; 84484-TC; 85025-TC; 85347; 87081-TC; C1725; C1769; C1887; C9601; C9803; G0378; G0500; J0696; J1644; J2250; J2405; J3010; J3490; J7030; J7050; J7060; Q9967

== ENCOUNTER 2021-08-25 11:41 | Inpatient (IN) | payer MEDICARE, OTHER ==
[~2021-08-25] VITALS: Ht 185.4 cm; Wt 93.0 kg
[~2021-08-25 11:41] MED LIST: ACET-2605 PO; ASPI-1169 PO; ATOR40TA PO; TICA90TA PO
--- NOTE | 2021-08-25 12:00 | NUR ---
SEEN BY DR GARCIA AT BEDSIDE
--- NOTE | 2021-08-25 12:15 | NUR ---
HOOK UP DRIVER AT BEDSIDE
--- NOTE | 2021-08-25 12:20 | NUR ---
BIBS THIS 71YO MALE PATIENT WITH CC OF LEFT SHOULDER DISCOMFORT. S/P CARDIAC STENT 1 MONTH AGO. PLACED COMFORTABLY IN BED. VITALS CHECKED.
[2021-08-25 12:28] LABS: BASOPHILS # (AUTO) 0.1 K/uL (0.0-0.2); BASOPHILS % (AUTO) 0.9 % (0.0-2.0); EOSINOPHILS % (AUTO) 3.6 % (0.0-6.0); HEMATOCRIT 44 % (39-51); HEMOGLOBIN 14.6 g/dL (13.5-17.5); LYMPHOCYTES # (AUTO) 3.4 K/uL (0.8-4.8); LYMPHOCYTES % (AUTO) 32.8 % (20.0-44.0); MEAN CORPUSCULAR HGB CONC 33 g/dl (31.0-36.0); MEAN CORPUSCULAR VOLUME 96 fL (80-96); MONOCYTES # (AUTO) 0.9 K/uL (0.1-1.30); MONOCYTES % (AUTO) 8.6 % (2.0-12.0); NEUTROPHILS # (AUTO) 5.6 K/uL (1.8-8.9); NEUTROPHILS % (AUTO) 54.1 % (43.0-81.0); PLATELET COUNT (AUTO) 152 K/uL (150-450); RED BLOOD CELL COUNT(AUTO) 4.58 MIL/uL (4.5-6.0); WHITE BLOOD COUNT (AUTO) 10.3 K/uL (4.3-11.0)
--- NOTE | 2021-08-25 12:30 | NUR ---
MOVE SHEET SUBMITTED AND CALLED FOR TELE BED.
[2021-08-25] MEDS ORDERED: MAGNESIUM HYDROXIDE 30 ML UDC PO PRN (14:00)
[2021-08-25] MEDS ORDERED: ACETAMINOPHEN 325 MG TABLET PO PRN (14:00)
[2021-08-25] MEDS ORDERED: Z GUARD REMEDY 4 OZ OINT TP PRN (14:00)
[2021-08-25] MEDS ORDERED: MAG HYDROX/AL HYDROX/SIMETH 30 ML UDC PO PRN (14:00)
[2021-08-25] MEDS ORDERED: MORPHINE SULFATE INJ 2 MG/ML DISP.SYRIN IV PRN (14:00)
[2021-08-25] MEDS ORDERED: ONDANSETRON HCL/PF 4 MG/2 ML VIAL IVP PRN (14:00)
[2021-08-25] MEDS ORDERED: HYDROCODONE/APAP 5/325MG TABLET PO PRN (14:00)
[2021-08-25 14:08] LABS: ALANINE AMINOTRANSFERASE 38 U/L (12-78); ALBUMIN 3.6 g/dL (3.4-5.0); ALKALINE PHOSPHATASE 80 U/L (46-116); ASPARTATE AMINOTRANSFERASE 21 U/L (15-37); BILIRUBIN,DIRECT 0.1 mg/dL (0.0-0.2); BILIRUBIN,TOTAL 0.5 mg/dL (0.2-1.0); CALCIUM, SERUM 8.6 mg/dL (8.5-10.1); CARBON DIOXIDE 26 mmol/L (21-32); CHLORIDE 106 mmol/L (98-107); GLUCOSE 109 mg/dL (74-106); SODIUM SERUM 140 mmol/L (136-145); TOTAL PROTEIN, SERUM 7.2 g/dL (6.4-8.2); UREA NITROGEN, BLOOD 15 mg/dL (7-18)
[2021-08-25] MEDS: TICAGRELOR 90 MG TABLET PO SCH (17:00)
[2021-08-25] MEDS ORDERED: CLOPIDOGREL BISULFATE 75 MG TABLET ONE (17:14)
--- NOTE | 2021-08-25 18:51 | NUR ---
BED 107 PER NURSING SUP
--- NOTE | 2021-08-25 21:36 | NUR ---
REPORT GIVEN TO LORA. PATIENT WILL BE TRANSFERED VIA STRETCHER ATTACHED TO MONITOR.
--- NOTE | 2021-08-25 21:45 | NUR ---
DECISION SUPPORT ANALYSTACCESS SERVICES ASSISTANT NOTES PATIENT ARRIVED ON UNIT VIA GURNEY WITH ER NURSE. RECEIVED PATIENT LAYING AWAKE IN BED. A/O X4. PATIENT WITH REGULAR AND UNLABORED BREATHING ON ROOM AIR TOLERATED WELL. NO SIGNS AND SYMPTOMS OF DISTRESS NOTED AT THIS TIME. NO COMPLAINS OF PAIN OR DISCOMFORT AT THIS TIME. IV ACCESS LFA G#20 SL. IV ACCESS PATENT AND INTACT. SAFETY PRECAUTIONS ENFORCED WITH BED LOCKED AND AT LOWEST POSITION. SIDERAILS UP X2. CALL LIGHT WITHIN REACH AT ALL TIMES. WILL CONTINUE TO MONITOR PATIENT.
--- NOTE | 2021-08-25 22:00 | NUR ---
CORNER BRACE BLOCK MACHINE OPERATOR NOTES UNABLE TO ADMINISTER BRILINTIA. DUE TO MEDICATION BEING UNAVAILABLE. CIVILIAN JAIL OFFICER STATED THAT MEDICATION IS UNAVAILABLE AT THIS TIME. CHARGE NURSE AND CIVILIAN JAIL OFFICER NOTIFIED. WILL CONTINUE TO MONITOR PATIENT.
[2021-08-25] MEDS: TEMAZEPAM 15 MG CAPSULE PO PRN (22:58)
[2021-08-26] VITALS: BP 107/63
[2021-08-26 04:00] VITALS: BP 110/64
[2021-08-26 06:06] LABS: BASOPHILS # (AUTO) 0.1 K/uL (0.0-0.2); BASOPHILS % (AUTO) 0.6 % (0.0-2.0); EOSINOPHILS % (AUTO) 3.8 % (0.0-6.0); HEMATOCRIT 46 % (39-51); HEMOGLOBIN 15.2 g/dL (13.5-17.5); LYMPHOCYTES # (AUTO) 2.9 K/uL (0.8-4.8); LYMPHOCYTES % (AUTO) 30.5 % (20.0-44.0); MEAN CORPUSCULAR HGB CONC 33 g/dl (31.0-36.0); MEAN CORPUSCULAR VOLUME 96 fL (80-96); MONOCYTES # (AUTO) 0.7 K/uL (0.1-1.30); MONOCYTES % (AUTO) 7.5 % (2.0-12.0); NEUTROPHILS # (AUTO) 5.4 K/uL (1.8-8.9); NEUTROPHILS % (AUTO) 57.6 % (43.0-81.0); PLATELET COUNT (AUTO) 159 K/uL (150-450); RED BLOOD CELL COUNT(AUTO) 4.85 MIL/uL (4.5-6.0); WHITE BLOOD COUNT (AUTO) 9.4 K/uL (4.3-11.0)
--- NOTE | 2021-08-26 06:46 | NUR ---
PARTITION ASSEMBLER CLOSING NOTES PATIENT ASLEEP BUT EASILY AROUSABLE IN BED. A/O X4. PATIENT WITH REGULAR AND UNLABORED BREATHING ON ROOM AIR TOLERATED WELL. NO SIGNS AND SYMPTOMS OF DISTRESS NOTED AT THIS TIME. NO COMPLAINS OF PAIN OR DISCOMFORT AT THIS TIME. PATIENT IS ON TELE MONITOR READING SB WITH INVERTED T WAVES @ 58 BPM. IV ACCESS LFA G#20 SL. IV ACCESS PATENT AND INTACT. SAFETY PRECAUTIONS ENFORCED WITH BED LOCKED AND AT LOWEST POSITION. SIDERAILS UP X2. CALL LIGHT WITHIN REACH AT ALL TIMES. WILL ENDORSE CONTINUITY OF CARE TO DAY SHIFT NURSE.
[2021-08-26 07:15] LABS: CALCIUM, SERUM 8.8 mg/dL (8.5-10.1); MAGNESIUM 1.9 mg/dL (1.8-2.4); PHOSPHORUS 3.6 mg/dL (2.5-4.9)
--- NOTE | 2021-08-26 07:52 | NUR ---
RN OPENING NOTES RECEIVED PATIENT FROM OUTGOING NURSE FOR CONTINUITY OF CARE. PATIENT IN BED, AO X 4, IN NO S/SX OF ACUTE DISTRESS AT THIS TIME. ON 2 LITER NC, SATURATION AT 100%, SR ON THE MONITOR, IV SITE AT LEFT FOREARM 20G, PATENT AND FLUSHING WELL, NO S/S OF INFECTION OR INFILTRATION. SAFETY MEASURES IMPLEMENTED. PATIENT BED ALARM IS ON. HEAD OF BED ELEVATED. BED IS LOCKED, IN LOWEST POSITION AND SIDE RAILS UP. CALL LIGHT WITHIN REACH OF THE PATIENT. WILL CONTINUE TO MONITOR AND REASSESS FOR ANY CHANGES.
[2021-08-26 08:00] VITALS: BP 116/72
[2021-08-26] MEDS: ASPIRIN 81 MG TAB.CHEW PO SCH (08:54)
[2021-08-26] MEDS: ATORVASTATIN 40 MG TABLET PO SCH (08:55)
[2021-08-26] MEDS: PANTOPRAZOLE 40 MG TABLET.DR PO SCH (08:55)
[2021-08-26] MEDS: TICAGRELOR 90 MG TABLET PO SCH ×2 (09:03→17:07)
[2021-08-26 09:04] LABS: POTASSIUM 4.1 mmol/L (3.5-5.1)
[2021-08-26 11:29] LABS: CHOLESTEROL 110 mg/dL (<200); HDL CHOLESTEROL 36 mg/dL (40-60); LDL 61 mg/dL (0-99); TRIGLYCERIDES 118 mg/dL (30-150)
[2021-08-26 12:00] VITALS: BP 127/84
[2021-08-26 16:00] VITALS: BP 140/79
--- NOTE | 2021-08-26 19:03 | NUR ---
RN CLOSING NOTES: PATIENT AWAKE IN BED, A&O X 4, ABLE TO MAKE NEEDS KNOWN, NO COMPLAINTS OF PAIN AND DISCOMFORT AT THIS TIME, ON room air , IV LINE AT RIGHT HAND , NO S/SX OF DISTRESS NOTED AT THIS TIME. SAFETY PRECAUTIONS IN PLACE: BED ON LOWEST LOCKED POSITION, SIDE RAILS UP X2, CALL LIGHT WITHIN EASY REACH. ALL NEEDS ATTENDED AND MET. DUE MEDS GIVEN ORDERED. WILL ENDORSE TO ONCOMING SHIFT FOR CARLEEN.
[2021-08-26 20:00] VITALS: BP 120/70
[2021-08-26] MEDS: TEMAZEPAM 15 MG CAPSULE PO PRN (22:27)
[2021-08-27] VITALS: BP 94/51
[2021-08-27 04:00] VITALS: BP 109/69
--- NOTE | 2021-08-27 06:13 | NUR ---
RN CLOSING NOTES Patient is currently sleeping but easy to wake. A&Ox4. Stable overnight. Denies Chest pain or SOB. Has been NPO since midnight. SB/SR overnight with inverted T wave. RAC#20G intact and patent.
[2021-08-27 07:09] LABS: BASOPHILS # (AUTO) 0.1 K/uL (0.0-0.2); BASOPHILS % (AUTO) 0.5 % (0.0-2.0); EOSINOPHILS % (AUTO) 3.7 % (0.0-6.0); HEMATOCRIT 48 % (39-51); HEMOGLOBIN 16.1 g/dL (13.5-17.5); LYMPHOCYTES # (AUTO) 3.1 K/uL (0.8-4.8); LYMPHOCYTES % (AUTO) 28.7 % (20.0-44.0); MEAN CORPUSCULAR HGB CONC 33 g/dl (31.0-36.0); MEAN CORPUSCULAR VOLUME 95 fL (80-96); MONOCYTES # (AUTO) 0.8 K/uL (0.1-1.30); MONOCYTES % (AUTO) 7.5 % (2.0-12.0); NEUTROPHILS # (AUTO) 6.5 K/uL (1.8-8.9); NEUTROPHILS % (AUTO) 59.6 % (43.0-81.0); PLATELET COUNT (AUTO) 156 K/uL (150-450); RED BLOOD CELL COUNT(AUTO) 5.09 MIL/uL (4.5-6.0); WHITE BLOOD COUNT (AUTO) 10.8 K/uL (4.3-11.0)
--- NOTE | 2021-08-27 07:20 | NUR ---
CARTOGRAPHIC ENGINEER NOTES: RECEIVED PATIENT IN BED, AO X 4, IN NO S/SX OF ACUTE DISTRESS AT THIS TIME. ON 2 LITER NC, SATURATION AT 100%, SR ON THE MONITOR, IV SITE AT LEFT FOREARM 20G, PATENT AND FLUSHING WELL. SAFETY MEASURES IMPLEMENTED. PATIENT BED ALARM IS ON. HEAD OF BED ELEVATED. BED IS LOCKED, IN LOWEST POSITION AND SIDE RAILS UP. CALL LIGHT WITHIN REACH OF THE PATIENT. WILL CONTINUE TO MONITOR AND REASSESS FOR ANY CHANGES
[2021-08-27] MEDS: PANTOPRAZOLE 40 MG TABLET.DR PO SCH (07:30)
--- NOTE | 2021-08-27 07:36 | NUR ---
ADAM RN NOTES: MEDICATION NOT GIVEN , PATIENT IS NPO FOR CT ANGIO
[2021-08-27 07:41] LABS: CALCIUM, SERUM 8.6 mg/dL (8.5-10.1); CREATININE 1.1 mg/dL (0.6-1.3); POTASSIUM 3.9 mmol/L (3.5-5.1)
[2021-08-27 08:00] VITALS: BP 133/88
[2021-08-27] MEDS: TICAGRELOR 90 MG TABLET PO SCH ×2 (09:00→16:10)
[2021-08-27] MEDS: ASPIRIN 81 MG TAB.CHEW PO SCH (09:00)
[2021-08-27] MEDS: ATORVASTATIN 40 MG TABLET PO SCH (09:00)
[2021-08-27 12:00] VITALS: BP 118/73
--- NOTE | 2021-08-27 13:00 | NUR ---
telemarketer notes: patient left for CT angio in stable condition, son at bedside
[2021-08-27] MEDS ORDERED: METOPROLOL TARTRATE INJ 5 MG/5 ML AMPUL ONE (13:09)
[2021-08-27] MEDS ORDERED: CT SWABBABLE VALVE TRANS SET 1 EA INFUS.SET MC ONE (13:09)
[2021-08-27] MEDS ORDERED: NITROGLYCERIN 0.4 MG/TAB BOTTLE ONE (13:09)
[2021-08-27] MEDS ORDERED: IOHEXOL-350 100 ML VIAL IV ONE (13:09)
[2021-08-27] MEDS: METOPROLOL TARTRATE INJ 5 MG/5 ML AMPUL IVP PRN ×2 (13:10→13:15)
[2021-08-27] MEDS ORDERED: IV NS 0.9% 250 ML IV ONE (13:10)
[2021-08-27] MEDS ORDERED: NITROGLYCERIN 0.4 MG/TAB BOTTLE SL ONE (13:30)
--- NOTE | 2021-08-27 14:00 | NUR ---
DIE MAKER APPRENTICE NOTES: PATIENT CA,E BACK IN STABLE CONDITION, ORDERED LUNCH. DENIED ANY PAIN OR DISCOMFORT
[2021-08-27] MEDS ORDERED: TEMA15CA5 PO (15:24)
--- NOTE | 2021-08-27 15:25 | NUR ---
NOVELTY TWISTER OPERATOR NOTES: SEEN BY SARAVANAN LOCKSMITH WITH ORDER TO DISCHARGE HOME,PATIENT AWARE HE CALLED HIS AND HIS SON TO COME AND PICK HIM UP, MEDICATION ORDERED AT PHARMACY OF CHOICE
[2021-08-27 16:00] VITALS: BP 113/72
--- NOTE | 2021-08-27 17:00 | NUR ---
TEACHER EDUCATION DIRECTORBASKET ASSEMBLER NOTES: PATIENT DISCHARGE INSTRUCTION GIVEN VERBALIZED UNDERSTANDING, NO PAIN OR DISCOMFORT, BODY CHECKED SKIN INTACT, RESPIRATION IS EVEN AND UNLABORED.REMOVED iv LINE OF BOTH ARMS. NO BLEEDING NOTED. AT BEDSIDE.NOTIFIED TO WELL DIGGER PRESCRIPTION AT [facility] PER HIS REQUEST. ASSISSTEDE HIM TO HIS CAR BY WHEELCHAIR, PICKED UP ALL HIS BELONGING
== END 2021-08-27 16:45 | disposition home or self-care (01) | DRG 303 ==
LOC: ER 12:03 → TRANSITION 16:06 → TELE1 19:09 → MEDSG1 08-27 09:23
PROVIDERS: ADMIT Nurse Practitioner Acute Care; ATTEND Nurse Practitioner Acute Care
DX: I25.10 Atherosclerotic heart disease of native coronary artery without angina pectoris (principal); E78.5 Hyperlipidemia, unspecified; Z90.49 Acquired absence of other specified parts of digestive tract; Z20.822 Contact with and (suspected) exposure to COVID-19; Z79.82 Long term (current) use of aspirin; Z79.899 Other long term (current) drug therapy; Z79.02 Long term (current) use of antithrombotics/antiplatelets; Z86.73 Personal history of transient ischemic attack (TIA), and cerebral infarction without residual deficits; Z95.5 Presence of coronary angioplasty implant and graft; F12.90 Cannabis use, unspecified, uncomplicated; J45.909 Unspecified asthma, uncomplicated; I10 Essential (primary) hypertension
CPT/HCPCS: 36415; 71045-TC; 75574; 80048-TC; 80061-TC; 80076-TC; 83735-TC; 83880; 84100-TC; 84484-TC; 85025-TC; 87081-TC; 93307-TC; C9803; G0378; J3490; J7050; Q9967

== ENCOUNTER 2022-01-08 09:56 | Emergency (ER) | payer MEDICARE, OTHER ==
[~2022-01-08] VITALS: Ht 154.9 cm; Wt 90.7 kg
[~2022-01-08 09:56] MED LIST changes: -ACET-2605 PO; +TEMA15CA5 PO
--- NOTE | 2022-01-08 10:00 | NUR ---
PATIENT BIBS C/O R LEG PAIN S/P FALL FROM 2 WEEKS AGO, PAIN IS 4/10 ON PAIN SCALE. A/O X4. STABLE ON RA WITH NO DISTRESS NOTED. AWAITING TO BE SEEN BY MD. WILL CONTINUE TO MONITOR PATIENT
[2022-01-08 13:35] VITALS: BP 115/60
--- NOTE | 2022-01-08 13:35 | NUR ---
Patient discharged to home in stable condition. Written and verbal after care instructions given. Patient verbalizes understanding of instruction.
== END 2022-01-08 13:35 | disposition home or self-care (01) ==
LOC: ER 09:59
DX: M79.661 Pain in right lower leg (principal); E78.5 Hyperlipidemia, unspecified; Z60.2 Problems related to living alone; Z79.899 Other long term (current) drug therapy; Z79.82 Long term (current) use of aspirin; W19.XXXA Unspecified fall, initial encounter; Y93.89 Activity, other specified; Y92.89 Other specified places as the place of occurrence of the external cause; Y99.8 Other external cause status
CPT/HCPCS: 73590-TC

== ENCOUNTER 2022-06-10 11:46 | Emergency (ER) | payer MEDICARE, OTHER ==
[~2022-06-10] VITALS: Ht 180.3 cm; Wt 90.7 kg
[2022-06-10 11:46] VITALS: BP 124/77
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
[2022-06-10] MEDS ORDERED: SILV20CR13 TP (12:12)
--- NOTE | 2022-06-10 12:17 | NUR ---
Patient discharged to home in stable condition. Written and verbal after care instructions given. Patient verbalizes understanding of instruction.
== END 2022-06-10 12:24 | disposition home or self-care (01) ==
LOC: ER 11:50
DX: T23.201A Burn of second degree of right hand, unspecified site, initial encounter (principal); T31.0 Burns involving less than 10% of body surface; E78.5 Hyperlipidemia, unspecified; Z60.2 Problems related to living alone; Z79.899 Other long term (current) drug therapy; X10.2XXA Contact with fats and cooking oils, initial encounter; Y93.89 Activity, other specified; Y92.89 Other specified places as the place of occurrence of the external cause; Y99.8 Other external cause status

== ENCOUNTER 2023-11-29 07:22 | Emergency (ER) | payer OTHER ==
[~2023-11-29] VITALS: Ht 180.3 cm; Wt 90.7 kg
[~2023-11-29 07:22] MED LIST changes: +SILV20CR13 TP
[2023-11-29 08:29] LABS: BASOPHILS % (AUTO) 0.4 % (0.0-2.0); EOSINOPHILS # (AUTO) 0.4 K/uL (0.0-0.7); HEMATOCRIT 45 % (39-51); HEMOGLOBIN 15.2 g/dL (13.5-17.5); LYMPHOCYTES # (AUTO) 3.4 K/uL (0.8-4.8); LYMPHOCYTES % (AUTO) 33.2 % (20.0-44.0); MEAN CORPUSCULAR HEMOGLOBIN 32 PG (26.0-33.0); MEAN CORPUSCULAR HGB CONC 34 g/dl (31.0-36.0); MEAN CORPUSCULAR VOLUME 96 fL (80-96); MONOCYTES # (AUTO) 0.6 K/uL (0.1-1.30); MONOCYTES % (AUTO) 5.9 % (2.0-12.0); NEUTROPHILS # (AUTO) 5.7 K/uL (1.8-8.9); NEUTROPHILS % (AUTO) 56.5 % (43.0-81.0); PLATELET COUNT (AUTO) 135 K/uL (150-450); RED BLOOD CELL COUNT(AUTO) 4.73 MIL/uL (4.5-6.0); RED CELL DISTRIBUTION WIDTH 13.3 % (11.5-15.0); WHITE BLOOD COUNT (AUTO) 10.1 K/uL (4.3-11.0)
[2023-11-29 08:37] LABS: CALCIUM, SERUM 8.9 mg/dL (8.5-10.1); CARBON DIOXIDE 28 mmol/L (21-32); CHLORIDE 104 mmol/L (98-107); CREATININE 1.1 mg/dL (0.6-1.3); GLUCOSE 107 mg/dL (74-106); POTASSIUM 4.3 mmol/L (3.5-5.1); SODIUM SERUM 140 mmol/L (136-145); UREA NITROGEN, BLOOD 15 mg/dL (7-18)
[2023-11-29 09:17] LABS: THYROID STIMULATING HORMONE 2.48 uIU/mL (0.358-3.74)
[2023-11-29] MEDS: IV NS 0.9% 1,000 ML BAG IV ONE (09:32)
[2023-11-29 11:13] VITALS: BP 123/72; TEMP 98; O2SAT 100
== END 2023-11-29 11:13 | disposition home or self-care (01) ==
LOC: ER 07:39
DX: R55 Syncope and collapse (principal); I10 Essential (primary) hypertension; E78.5 Hyperlipidemia, unspecified; I25.2 Old myocardial infarction; I25.10 Atherosclerotic heart disease of native coronary artery without angina pectoris; Z60.2 Problems related to living alone
CPT/HCPCS: 99285; 96360; 71045; 93005; 85025; 80048; 36415; 84443; 84484; 83880; 82962; J7030

== ENCOUNTER 2024-09-06 11:35 | Emergency (ER) | payer OTHER ==
[~2024-09-06] VITALS: Ht 180.3 cm; Wt 86.2 kg
[2024-09-06 12:30] VITALS: BP 115/72; TEMP 98.3; O2SAT 99
== END 2024-09-06 12:31 | disposition home or self-care (01) ==
LOC: ER 11:39
DX: M25.562 Pain in left knee (principal); I25.10 Atherosclerotic heart disease of native coronary artery without angina pectoris; I10 Essential (primary) hypertension; E78.5 Hyperlipidemia, unspecified; Z79.02 Long term (current) use of antithrombotics/antiplatelets; Z79.82 Long term (current) use of aspirin; Z79.899 Other long term (current) drug therapy; Z60.2 Problems related to living alone